=== PATIENT | male | born 1955 | race Caucasian/White ===

== ENCOUNTER 2020-06-01 09:41 | Outpatient (CLI) | payer MEDICARE, OTHER, SELFPAY ==
--- NOTE | 2020-06-01 12:00 | NEURO_ITS ---
Impression: # Complains of numbness of left hand. Only left extremity tested per patient request. # Left moderate Carpal Tunnel Syndrome. # No ulnar neuropathy. # Normal needle/EMG exam. Nerve Conduction Studies Anti Sensory Summary Table Stim Site NR Peak (ms) P-T Amp (?V) Site1 Site2 Delta-P (ms) Dist (cm) Dejon (m/s) Left Median Anti Sensory (2-3nd Digit) Wrist 5.8 18.4 Wrist 2-3nd Digit 5.8 14.0 24 Wrist 4.9 18.3 Wrist 2-3nd Digit 5.8 14.0 24 Left Radial Anti Sensory (Base 1st Digit) Wrist 1.9 12.1 Wrist Base 1st Digit 1.9 0.0 Left Ulnar Anti Sensory (5th Digit) Wrist 2.8 35.2 Wrist 5th Digit 2.8 14.0 50 Motor Summary Table Stim Site NR Onset (ms) O-P Amp (mV) Site1 Site2 Delta-0 (ms) Dist (cm) Dejon (m/s) Left Median Motor (Abd Poll Brev) Wrist 4.7 3.3 Elbow Wrist 5.1 29.0 57 Elbow 9.8 3.0 Left Ulnar Motor (Abd Dig Minimi) Wrist 2.7 7.3 A Elbow Wrist 5.0 29.0 58 A Elbow 7.7 5.7 F Wave Studies NR F-Lat (ms) L-R F-Lat (ms) Left Median (Mrkrs) (Abd Poll Brev) 29.65 Left Ulnar (Mrkrs) (Abd Dig Min) 27.93 EMG Side Muscle Nerve Root Ins Act Fibs Amp Dur Recrt Comment Left 1stDorInt Ulnar C8-T1 Nml Nml Nml Nml Nml Left Ext Indicis Radial (Post Int) C7-8 Nml Nml Nml Nml Nml Left Ext Digitorum Radial (Post Int) C7-8 Nml Nml Nml Nml Nml Left BrachioRad Radial C5-6 Nml Nml Nml Nml Nml Left PronatorTeres Median C6-7 Nml Nml Nml Nml Nml Left Abd Poll Brev Median C8-T1 Nml Nml Nml Nml Nml MTDD
== END 2020-06-01 09:42 | disposition home or self-care (01) ==
PROVIDERS: PCP Family Medicine; Visit Provider Family Medicine
DX: R20.2 Paresthesia of skin (principal); G56.02 Carpal tunnel syndrome, left upper limb
CPT/HCPCS: 95886; 95909

== ENCOUNTER 2020-09-23 08:14 | Outpatient (CLI) | payer MEDICARE, OTHER, SELFPAY ==
--- NOTE | 2020-09-30 11:42 | WPDHOMESLEEP ---
Sleep Study - Home Unattended Date of Study: 09/23/20 Ordering Provider: NICOLÁS Wilkinson Interpreting Provider: Juliann Rosas MD Home Sleep Study Type: Watch PAT Height: 1.68 m Weight: 95.254 kg Body Mass Index: 33.9 Neck Circumference (inches): 17.75 Sayre: 6 Reason for Sleep Study Witnessed apnea after left carpal tunnel repair surgery Sleep History Torres Harris is a 65 year old man reports that a nurse watched him during surgery a few months ago, noticed that he had apnea. He does have difficulty falling asleep, he wakes throughout the night and he has excessive daytime sleepiness. He frequently awakens from sleep feeling short of breath. He does not awaken at night with heartburn, belching or coughing. He occasionally snores and occasionally it is loud enough that others complain of. He does not have trouble sleep with a cold. He occasionally wakes up gasping for breath at night and occasionally has breathing problems at night observed by others. He does not sweat excessively at night or notices heart pounding or beating irregularly night. He frequently falls asleep during the day but this is never involuntarily or while driving. He does not have loss of muscle tone was strong emotion. He does not have daytime difficulties due to his excessive sleepiness. He does not feel paralyzed on waking or falling asleep. He does not have vivid dreamlike scenes upon awakening or falling asleep. He does not feel afraid to go to sleep. He does not have nightmares. He occasionally remembers his dreams. He occasionally has racing thoughts. He does not feel sad or depressed. He rarely has anxiety. He does not have muscular tension or notices parts of his body jerking. He occasionally kicks at night, occasionally has crawling and aching feelings in his legs and occasionally has leg pain at night. He does not have morning jaw pain. He does not grind his teeth during sleep. He frequently is bothered by pain during the day and is awakened by pain at night. He rarely wakes up feeling stiff in the morning. He frequently wakes up with sore or achy muscles. He does not wake up with spine pain. He has fatigue, memory problems and insomnia. Normal bedtime is between 2:00 and 3:00 a.m., falling asleep instantly and sometimes taking up to 15 minutes to fall asleep. He typically wakes twice at night to urinate and he is able to return to sleep within 5 minutes. He wakes the morning at 5:00 a.m.. Pain interrupts his sleep. His weekend schedule is the same. He estimates getting 4-5 hours of sleep at night. He takes naps. A short nap is not refreshing. He has frequently sleepy in the day but he indicates that he always awakens feeling refreshed. He never has morning headache or heartburn at night. Habits: Never smoked tobacco. Caffeine 3 servings a day. No alcohol or recreational drugs. [facility] Past Medical History Medical History (Updated 09/30/20 @ 12:01 by Juliann Rosas MD) Arthritis BPH (benign prostatic hyperplasia) Carpal tunnel syndrome, left Generalized anxiety disorder with panic attacks Gout Hyperlipidemia Hypertension Surgical History Surgical History (Updated 09/30/20 @ 11:48 by Juliann Rosas MD) History of carpal tunnel surgery left wrist Social History Social History (Updated 09/30/20 @ 11:49 by Juliann Rosas MD) Smoking status: Never smoker Alcohol intake: never Medications Medications: quinapril 40 mg a day Norvasc 5 mg a day Lexapro 10 mg a day tamsulosin 4 mg a day allopurinol 300 mg a day atorvastatin calcium 10 mg a day Sleep Procedure The sleep study was completed using [email or web address] a technically adequate device with seven channels: peripheral arterial tone, actigraphy, body position, snore, respiratory movement, pulse oximetry, sleep staging, and heart rate. Prior to using the device, the patient received verbal and written instructions for its application and was pro
[2020-09-30 11:47] VITALS: BMI 33.9
== END 2020-09-23 08:15 | disposition home or self-care (01) ==
LOC: ANHCSM 08:15
PROVIDERS: PCP Family Medicine; Visit Provider Physician Assistant
DX: G47.33 Obstructive sleep apnea (adult) (pediatric) (principal)
CPT/HCPCS: 95800

== ENCOUNTER → 2020-10-04 01:57 | Outpatient (CLI) | payer MEDICARE, OTHER, SELFPAY ==
[2020-10-04 19:23] LABS: SARS-CoV-2 RNA PCR Negative
== END ==
PROVIDERS: PCP Family Medicine; Visit Provider Internal Medicine Critical Care Medicine
DX: Z01.812 Encounter for preprocedural laboratory examination (principal); Z20.822 Contact with and (suspected) exposure to COVID-19
CPT/HCPCS: C9803; U0003; U0005

== ENCOUNTER 2020-10-06 10:11 | Outpatient (CLI) | payer MEDICARE, OTHER, SELFPAY ==
--- NOTE | 2020-10-10 14:23 | WPDSLEEPSTUD ---
Sleep Study Ordering Provider: NICOLÁS Wilkinson Interpreting Physician: Juliann Rosas MD Sleep Study Type: CPAP Titration Height: 1.68 m Weight: 95.708 kg Body Mass Index: 34.0 Neck Circumference (inches): 18 Bryant: 6 Reason for Sleep Study Home Sleep Test September 23, 2020 with severe central sleep apnea; AHI 46.3, central AHI 37.2, desaturation to 67%, and loud snoring with Jian-Morley respirations during 23% of the night. H he presents for CPAP titration. Sleep History Torres Harris is a 65 year old man reports that a nurse watched him during surgery a few months ago, noticed that he had apnea. He does have difficulty falling asleep, he wakes throughout the night and he has excessive daytime sleepiness. He frequently awakens from sleep feeling short of breath. He does not awaken at night with heartburn, belching or coughing. He occasionally snores and occasionally it is loud enough that others complain of. He does not have trouble sleep with a cold. He occasionally wakes up gasping for breath at night and occasionally has breathing problems at night observed by others. He does not sweat excessively at night or notices heart pounding or beating irregularly night. He frequently falls asleep during the day but this is never involuntarily or while driving. He does not have loss of muscle tone was strong emotion. He does not have daytime difficulties due to his excessive sleepiness. He does not feel paralyzed on waking or falling asleep. He does not have vivid dreamlike scenes upon awakening or falling asleep. He does not feel afraid to go to sleep. He does not have nightmares. He occasionally remembers his dreams. He occasionally has racing thoughts. He does not feel sad or depressed. He rarely has anxiety. He does not have muscular tension or notice parts of his body jerking. He occasionally kicks at night, occasionally has crawling and aching feelings in his legs and occasionally has leg pain at night. He does not have morning jaw pain. He does not grind his teeth during sleep. He frequently is bothered by pain during the day and is awakened by pain at night. He rarely wakes up feeling stiff in the morning. He frequently wakes up with sore or achy muscles. He does not wake up with spine pain. He has fatigue, memory problems and insomnia. Normal bedtime is between 2:00 and 3:00 a.m., falling asleep instantly and sometimes taking up to 15 minutes to fall asleep. He typically wakes twice at night to urinate and he is able to return to sleep within 5 minutes. He wakes the morning at 5:00 a.m.. Pain interrupts his sleep. His weekend schedule is the same. He estimates getting 4-5 hours of sleep at night. He takes naps. A short nap is not refreshing. He has frequently sleepy in the day but he indicates that he always awakens feeling refreshed. He never has morning headache or heartburn at night. Habits: Never smoked tobacco. Caffeine 3 servings a day. No alcohol or recreational drugs. [facility] Past Medical History Medical History (Updated 10/10/20 @ 14:40 by Juliann Rosas MD) Arthritis BPH (benign prostatic hyperplasia) Carpal tunnel syndrome, left Generalized anxiety disorder with panic attacks Gout Hyperlipidemia Hypertension Surgical History Surgical History (Updated 09/30/20 @ 11:48 by Juliann Rosas MD) History of carpal tunnel surgery left wrist Social History Social History (Updated 09/30/20 @ 11:49 by Juliann Rosas MD) Smoking status: Never smoker Alcohol intake: never Medications Medications: Norvasc 5 mg a day Lexapro 10 mg a day tamsulosin 4 mg a day allopurinol 300 mg a day atorvastatin calcium 10 mg a day Sleep Procedure This test was performed [facility] multiple channel system including EOG, EEG, submental EMG, EKG, nasal and oral airflow using thermistors and nasal pressure sensors, chest and abdominal belts for body position data, and pulse oxime
[2020-10-10 14:24] VITALS: BMI 34.0
== END 2020-10-06 10:12 | disposition home or self-care (01) ==
LOC: ANHCSM 10:12
PROVIDERS: PCP Family Medicine; Visit Provider Physician Assistant
DX: G47.39 Other sleep apnea (principal); G25.81 Restless legs syndrome
CPT/HCPCS: 95811

== ENCOUNTER → 2020-10-13 10:58 | Outpatient (CLI) | payer MEDICARE, OTHER, SELFPAY ==
--- NOTE | ~2020-10-13 | XR_ITS ---
EXAMINATION: XR shoulder RT min 2V DATE: 10/13/2020 11:23 INDICATION: Right shoulder pain TECHNIQUE: AP internally and externally rotated, AP oblique externally rotated and axillary views of the right shoulder were obtained. COMPARISON: None FINDINGS: Normal alignment. No fracture. Glenohumeral joint is normal. Mild acromioclavicular osteoarthritis. Soft tissues are unremarkable. The visualized portions of the lungs are clear. IMPRESSION: Mild acromioclavicular osteoarthritis. Reviewed, dictated and finalized at location A.
--- NOTE | ~2020-10-13 | XR_ITS ---
EXAMINATION: XR hand RT min 3V DATE: 10/13/2020 11:23 INDICATION: Right hand pain TECHNIQUE: Posteroanterior, oblique and lateral views of the right hand were obtained. COMPARISON: None. FINDINGS: Bone alignment is normal. No fracture. Polyarticular osteoarthritis the right wrist. This is of moder ate severity at the second and third distal interphalangeal and first carpal metacarpal joints, mild to moderate at the second and third tarsal phalangeal joints and mild at the distal radioulnar, midca rpal, triscaphe, first and fourth metacarpophalangeal and at the remaining interphalangeal joints. Cy stic changes within sclerotic margins at the ulnar side of the proximal lunate, at the radial side of the mid capitate and at the head of the second middle phalanx. No erosions to suggest an inflammator y arthritis. Soft tissues are unremarkable. IMPRESSION: 1. Mild to moderate polyarticular osteoarthritis at the right hand and wrist. Reviewed, dictated and finalized at location A.
== END ==
PROVIDERS: PCP Family Medicine; Visit Provider Physician Assistant
DX: M19.041 Primary osteoarthritis, right hand (principal); M19.031 Primary osteoarthritis, right wrist; M19.011 Primary osteoarthritis, right shoulder
CPT/HCPCS: 73030; 73130

== ENCOUNTER 2022-02-27 10:53 | Emergency (ER) | payer MEDICARE, OTHER, SELFPAY ==
--- NOTE | ~2022-02-27 | CT_ITS ---
EXAMINATION: CT abdomen pelvis wo con DATE: 02/27/2022 11:50 INDICATION: Right flank pain. TECHNIQUE: Computed tomography (CT) of the abdomen and pelvis was performed without intravenous contr ast. Automated exposure control and iterative reconstruction technique were employed. The dose-length product was 350.21 mGy-cm. COMPARISON: CT abdomen and pelvis 01/24/2018 FINDINGS: The visualized portions of the lung bases demonstrate chronic subpleural bands in the lower lobes. No pleural effusion. The heart size is normal. No pericardial effusion. There is a small slid ing hiatal hernia. The liver, gallbladder, spleen, pancreas, and adrenal glands are normal. There is a 3.1 cm cyst in right kidney. There is mild right hydronephrosis. There is a 2 mm stone in proximal right ureter. There is a 2 mm stone in left kidney. There is diverticulosis of the colon without evid ence of diverticulitis. There are no dilated loops of bowel. The appendix is normal. There are no pat hologically enlarged lymph nodes. There is no free intraperitoneal fluid. There is severe lumbar and thoracic spondylosis. IMPRESSION: 1. 2 mm stone in proximal right ureter with mild right hydronephrosis. 2. 2 mm nonobstructing left kidney stone. Reviewed, dictated and finalized at location A.
--- NOTE | ~2022-02-27 | XR_ITS ---
XR abdomen/kub 1V 02/27/2022 13:48 INDICATION: Right flank pain TECHNIQUE: KUB COMPARISON: None FINDINGS: Bowel gas pattern is normal. There is no evidence of free air, mass, organomegaly, ascites or obstruction. No abnormal calculi are seen. The bones appear intact. IMPRESSION: 1: No acute abdominal abnormality identified. Reviewed, dictated and finalized at location B.
[2022-02-27 10:59] VITALS: BP 147/86; PULSE 73; RESP 16; TEMP 36.9; O2SAT 100
[2022-02-27 11:25] LABS: Basophils Percent Auto 0.6 % (0.2-1.2); Eosinophils Absolute Auto 0.2 K/mm3 (0-0.3); Eosinophils Percent Auto 3.1 % (0-4.4); Hematocrit 47.6 % (42.0-52.0); Hemoglobin 15.6 g/dL (14.0-18.0); Immature Granulocyte Absolute 0.02 K/mm3 (0.00-0.031); Immature Granulocyte Percent A 0.3 % (0-0.5); Lymphocytes Absolute Auto 2.41 K/mm3 (0.9-3.2); Lymphocytes Percent Auto 34.5 % (18.3-44.2); Mean Corpuscular HGB Conc 32.8 g/dl (32-36); Mean Corpuscular Hemoglobin 30.1 pg (26-34); Mean Corpuscular Volume 91.7 fl (80-100); Mean Platelet Volume 10.7 fl (7.4-10.4); Monocytes Absolute Auto 0.5 K/mm3 (0.1-0.6); Monocytes Percent Auto 7.4 % (2.6-8.5); Neutrophils Absolute Auto 3.8 K/mm3 (1.3-6.7); Neutrophils Percent Auto 54.1 % (45.5-73.1); Platelet Count Result 257 k/mm3 (150-375); Red Blood Count 5.19 M/mm3 (4.6-6.20); Red Cell Distribution Width 14.6 % (11.5-14.5)
[2022-02-27 11:27] LABS: Appearance Urine Cloudy (Clear); Bilirubin Urine Negative (Negative); Blood Urine 3+ (Negative); Color Urine Light Yellow (Yellow); Glucose Urine UA Negative (Negative); Ketones Urine Negative (Negative); Leukocyte Esterase Ur Negative LEU/UL (Negative); Nitrate Urine Negative (Negative); Protein Urine Negative (Negative); Specific Grav Ur 1.015 (1.001-1.035); Urobilinogen Urine 0.2 mg/dL (<2.0); pH Urine 5.5 (5.0-9.0)
[2022-02-27 11:34] LABS: Mucus Urine Rare /lpf; RBC Urine >75 /hpf (0-2); Squamous Epithelial Cell Urine Rare /hpf (Few); WBC Urine 0-3 /hpf
[2022-02-27 11:37] LABS: Add Urine Microscopic? YES
[2022-02-27 11:41] LABS: Alanine Aminotransferase 88 U/L (6-50); Albumin Level 4.6 g/dL (3.5-5.1); Alkaline Phosphatase 145 U/L (38-126); Anion Gap 12 mmol/L (8-16); Aspartate Amino Transferase 69 U/L (17-59); Bilirubin,Total 1.4 mg/dL (0.2-1.3); Blood Urea Nitrogen 16 mg/dL (9-20); Calcium 9.3 mg/dL (8.4-10.2); Carbon Dioxide 26 mmol/L (22-30); Chloride 102 mmol/L (98-107); Estimated CRCL calculation 53 ml/min; Estimated Glomerular Filt Rate 55; Glucose 110 mg/dL (65-110); Lipase 120 U/L (23-300); Potassium 4.2 mmol/L (3.4-5.0); Sodium 140 mmol/L (137-145)
[2022-02-27] MEDS: SODIUM CHLORIDE 0.9% IV 1,000 ML 999 ML IV CONT (11:56)
[2022-02-27] MEDS: ONDANSETRON INJ 4 MG/2 ML VIAL IV PUSH (11:56)
[2022-02-27] MEDS: MORPHINE SULFATE (*CRX) 4 MG/ML INJ IV PUSH (11:58)
[2022-02-27 12:02] VITALS: BP 148/101; PULSE 66; RESP 20; O2SAT 100
[2022-02-27] MEDS: HYDROmorphone HCL INJ (*CRX) 1 MG/ML SYR IV PUSH (12:44)
--- NOTE | 2022-02-27 13:34 | ED.ABDPAIN ---
HPI - Abdominal Pain General Chief Complaint: Abdominal Pain Stated Complaint: R flank pain Time Seen by Provider: 02/27/22 11:37 History of Present Illness HPI narrative: 67-year-old male presents the emergency room with a sudden onset of right flank pain. Patient states the pain began around 9:00 this morning and comes in waves. Denies any radiating pain. Is accompanied with occasional nausea. Patient does endorse a history of kidney stones, but cannot recall when he last had a stone. Related Data Home Medications Medication Instructions Recorded Confirmed allopurinol 300 mg tablet mg 02/27/22 amlodipine 5 mg tablet mg 02/27/22 atorvastatin 10 mg tablet mg 02/27/22 quinapril 40 mg tablet mg 02/27/22 02/27/22 Allergies Allergy/AdvReac Type Severity Reaction Status Date / Time No Known Allergies Allergy Verified 02/27/22 11:00 Review of Systems Review of Systems: CONSTITUTIONAL: Denies fever, chills, or sweats. EYES: Denies visual changes, redness, or discharge. ENT: Denies rhinorrhea, congestion, sore throat, or otalgia. CARDIOVASCULAR: Denies chest pain, palpitations, or edema. RESPIRATORY: Denies cough or dyspnea. GASTROINTESTINAL: Reports right flank pain, nausea GENITOURINARY: Reports hematuria. SKIN: Denies rash or itching. MUSCULOSKELETAL: Denies back pain, joint pain, or myalgia. NEUROLOGIC: Denies headache, numbness, dizziness, or weakness. PSYCHIATRIC: Denies anxiety or depression. [facility] Past Medical History Medical History Arthritis BPH (benign prostatic hyperplasia) Carpal tunnel syndrome, left Generalized anxiety disorder with panic attacks Gout Hyperlipidemia Hypertension Surgical History Surgical History History of carpal tunnel surgery left wrist Social History Social History Smoking status: Never smoker Alcohol intake: never Exam Narrative: GENERAL: Well-appearing, well-nourished, no physical limitations, and in acute distress. HEAD: Normocephalic, atraumatic. EYES: Conjunctivae normal, PERRLA and EOMI. CHEST: Clear to auscultation. No respiratory distress. No wheezes rales or rhonchi. HEART: Regular rate and rhythm. No murmur heard. Normal peripheral pulses. ABDOMEN: Soft, nontender, nondistended, normal active bowel sounds. BACK: right CVA tenderness EXTREMITIES: Normal range of motion. No edema. No clubbing or cyanosis SKIN: Warm, dry, no rash. No noted wounds NEURO: No focal deficits. Alert and oriented x3. MAEW. CN's II-XI intact bilaterally, normal gait PSYCH: Cooperative. Normal mood and affect. Course Vital Signs Vital signs: Vital Signs Temperature 36.9 C 02/27/22 10:59 Pulse Rate 73 02/27/22 10:59 Respiratory Rate 16 02/27/22 10:59 Blood Pressure 147/86 H 02/27/22 10:59 Pulse Oximetry 100 02/27/22 10:59 Oxygen Delivery Room Air 02/27/22 10:59 Temperature 36.9 C 02/27/22 10:59 Pulse Rate 66 02/27/22 12:02 Respiratory Rate 20 02/27/22 12:02 Blood Pressure 148/101 H 02/27/22 12:02 Pulse Oximetry 100 02/27/22 12:02 Oxygen Delivery Room Air 02/27/22 10:59 MDM - Abdominal Pain MDM Narrative Medical decision making narrative: 67-year-old male presented the emergency room with sudden onset of right flank pain. CT scan shows a 2 mm stone proximal UPJ tract. Patient was given a liter of fluid pain medicine, which she says helped reduce his pain but not limited. Discussed findings with patient, and expressed to him that he will need to follow-up with urology for further evaluation and intervention. Discussed case with Dr. Sunshine's physician assistant activities director. Labs show no evidence of infection. Lab Data Result diagrams: 02/27/22 11:07 02/27/22 11:07 Labs: Lab Results 02/27/22 02/27/22 02/27/22 Range/Units 11:07 11:0
[2022-02-27 14:00] VITALS: BP 146/95; PULSE 70; RESP 20; O2SAT 100
== END 2022-02-27 14:03 | disposition home or self-care (01) ==
PROVIDERS: Emergency Medicine; Emergency Provider Nurse Practitioner Family; PCP Family Medicine
DX: N13.2 Hydronephrosis with renal and ureteral calculous obstruction (principal); E78.5 Hyperlipidemia, unspecified; I10 Essential (primary) hypertension; N40.0 Benign prostatic hyperplasia without lower urinary tract symptoms; M10.9 Gout, unspecified; F41.1 Generalized anxiety disorder
CPT/HCPCS: 36415; 74018; 74176; 80053; 81001; 83690; 85025; 87086; 87147; 87181; 87186; 96361; 96374; 96375; 99284; J1170; J2270; J2405; J7030

== ENCOUNTER → 2022-05-21 09:58 | Outpatient (CLI) | payer MEDICARE, OTHER, SELFPAY ==
--- NOTE | ~2022-05-21 | XR_ITS ---
Right Knee Technique: AP, lateral, and sunrise views were obtained. Clinical History: Pain Findings: No fracture or dislocation is seen. Osseous alignment is anatomic. Mild degenerative spurri ng at the lateral joint line, intercondylar notch noted. Minimal patellar spurring. Suspected 8mm pos terior loose body versus other soft tissue mineralization. No joint effusion is seen. Impression: Minimal degenerative change, as above. Possible 8 mm posterior loose body versus other soft tissue mineralization. Reviewed, dictated and finalized at location [] ENTRY OPERATOR Impression: Minimal degenerative change, as above. Possible 8 mm posterior loose body versus other soft tissue mineralization.
== END ==
PROVIDERS: PCP Family Medicine; Visit Provider Physician Assistant
DX: M25.561 Pain in right knee (principal)
CPT/HCPCS: 73564